=== PATIENT | female | born 1980 | race American Indian/Alaskan Native ===

== ENCOUNTER 2016-11-15 14:03 | Outpatient (CLI) | payer OTHER ==
[2016-11-15 14:31] LABS: Basophils % (Auto) 0.4 % (0.0-1.8); Eosinophils % (Auto) 1.4 % (0.0-4.3); Mean Corpuscular HGB Conc 30 % (30-34); Platelet Count 385 K/mm3 (140-440); Red Blood Count 4.64 M/mm3 (3.65-5.03); White Blood Count 9.3 K/mm3 (4.5-11.0)
[2016-11-15 14:34] LABS: Hematocrit 28.9 % (30.3-42.9); Hemoglobin 8.6 gm/dl (10.1-14.3); Mean Corpuscular Hemoglobin 19 pg (28-32); Mean Corpuscular Volume 62 fl (79-97); Red Cell Distribution Width 20.8 % (13.2-15.2)
[2016-11-15 14:56] LABS: Albumin 3.9 g/dL (3.9-5); Albumin/Globulin Ratio 1.2 %; Alkaline Phosphatase 54 units/L (35-129); Anion Gap 18 mmol/L; BUN/Creatinine Ratio 16.66; Bilirubin,Total 0.5 mg/dL (0.1-1.2); Blood Urea Nitrogen 10 mg/dL (7-17); Calcium 8.3 mg/dL (8.4-10.2); Carbon Dioxide 23 mmol/L (22-30); Chloride 100.1 mmol/L (98-107); Cholesterol 140 mg/dL (50-199); Glucose 93 mg/dL (65-100); HDL Cholesterol 32 mg/dL (40-59); LDL Cholesterol,Direct 94 mg/dL (50-130); Potassium 3.8 mmol/L (3.6-5.0); Sodium 137 mmol/L (137-145); Total Protein 7.1 g/dL (6.3-8.2); Triglycerides 73 mg/dL (2-149)
[2016-11-15 14:57] LABS: Alanine Aminotransferase < 5 units/L (7-56)
== END 2016-11-15 14:04 | disposition home or self-care (01) ==
LOC: LABHHL 14:03
PROVIDERS: ATTEND Specialist
DX: Z00.00 Encounter for general adult medical examination without abnormal findings (principal); D50.9 Iron deficiency anemia, unspecified; E61.8 Deficiency of other specified nutrient elements; K30 Functional dyspepsia
CPT/HCPCS: 36415; 80053; 80061; 84443; 85025

== ENCOUNTER 2019-01-27 14:00 | Emergency (ER) | payer BC, OTHER ==
--- NOTE | 2019-01-27 14:30 | Emergency Department Report ---
Chief Complaint: Neuro Symptoms/Deficit Stated Complaint: FACE NUMBNESS Time Seen by Provider: 01/27/19 14:28 - HPI History of Present Illness: FACE NUMB SINCE TUESDAY- [facility]MD TOLD HER DUE TO TOOTH BUT WHEN BP HIGH THEY SENT HER HERE NO FOCAL NEURO DEF 1430 WENT TO [facility] TODAY THEY SENT HER HERE TO RO [facility] NO FOCAL NEURO DEF NO CP NO SOB NO HEADACHE PMH HTN- WAS ON MEDS FOR 3 M - VISIT TUESDAY FOR FOLLOW UP OBESE HYPOTHYROID RX SYNTHROID ENALOPRIL- OFF METOPROL- OFF PSH THYROIDOMY BREAST REDUCTION HERE FOR 1. BP 2. NUMB FACE 3 DENTAL PAIN MSE COMPLETED MSE screening note: Focused history and physical exam performed. Due to findings the following was ordered: ED Disposition for MSE Condition: Stable
[2019-01-27] MEDS ORDERED: CATAPRES PO ONE ×2 (14:33)
[2019-01-27] MEDS ORDERED: CATAPRES ONE (14:36)
[2019-01-27 15:42] LABS: Hematocrit 32.9 % (30.3-42.9); Hemoglobin 10.5 gm/dl (10.1-14.3); Mean Corpuscular HGB Conc 32 % (30-34); Mean Corpuscular Volume 77 fl (79-97); Platelet Count 335 K/mm3 (140-440); Red Blood Count 4.29 M/mm3 (3.65-5.03); Red Cell Distribution Width 17.4 % (13.2-15.2)
[2019-01-27 15:52] LABS: BUN/Creatinine Ratio 11; Blood Urea Nitrogen 9 mg/dL (7-17); Calcium 8.3 mg/dL (8.4-10.2); Hemolysis Index 2
[2019-01-27 16:07] VITALS: BP 165/101
--- NOTE | 2019-01-27 16:09 | Emergency Department Report ---
ED Recheck HPI - General Chief Complaint: Neuro Symptoms/Deficit Stated Complaint: FACE NUMBNESS Time Seen by Provider: 01/27/19 14:28 Source: patient Mode of arrival: Ambulatory Limitations: No Limitations - History of Present Illness Initial Comments: PT SENT HERE FROM [facility] OFFICE FOR EVAL. PT HAS A DENTAL INFECTION BUT TOLD THE DMD THAT HER FACE WAS NUMB. THE DMD TOLD HER IT WAS IN THE DISTRIBUTION OF THE NERVE AFFECTED BY THE TOOTH BUT WANTED HER TO BE SEEN HERE WELL. NO ANTIBIOTICS GIVEN FOR THE DENTAL INFECTION. NO FOCAL NEURO DEF ON EXAM. -: Gradual, days(s) Initial Visit For: other Returns Today for: other Symptoms Since Prior Visit: no new symptoms Associated Symptoms: none - Related Data Home Medications Medication Instructions Recorded Confirmed Last Taken Ferrous Sulfate [Iron Supplement] 325 mg PO DAILY 03/21/14 03/28/14 03/27/14 Previous Rx's Medication Instructions Recorded Last Taken Type Amoxicillin 500 mg PO BID #20 capsule 01/27/19 Unknown Rx Enalapril Maleate [Vasotec] 2.5 mg PO DAILY #30 tablet 01/27/19 Unknown Rx Metoprolol Xl [Metoprolol 25 mg PO QDAY #30 tablet 01/27/19 Unknown Rx SUCCINATE ER TAB] Allergies Allergy/AdvReac Type Severity Reaction Status Date / Time No Known Allergies Allergy Verified 01/27/19 14:42 ED Review of Systems ROS: Stated complaint: FACE NUMBNESS Other details as noted in HPI Comment: All other systems reviewed and negative ED Past Medical Hx - Past Medical History Previous Medical History?: Yes Hx Hypertension: Yes (in process 01/2019) Hx Congestive Heart Failure: No Hx Diabetes: No Hx Asthma: No Hx COPD: No Additional medical history: hypothyroid - Surgical History Past Surgical History?: Yes Hx Breast Surgery: Yes (BILATERAL BREAST REDUCTION 1990) Additional Surgical History: thyroidectomy - Family History Family history: no significant - Social History Smoking Status: Never Smoker Substance Use Type: Alcohol - Medications Home Medications: Home Medications Medication Instructions Recorded Confirmed Last Taken Type Ferrous Sulfate [Iron Supplement] 325 mg PO DAILY 03/21/14 03/28/14 03/27/14 History Amoxicillin 500 mg PO BID #20 capsule 01/27/19 Unknown Rx Enalapril Maleate [Vasotec] 2.5 mg PO DAILY #30 tablet 01/27/19 Unknown Rx Metoprolol Xl [Metoprolol 25 mg PO QDAY #30 tablet 01/27/19 Unknown Rx SUCCINATE ER TAB] ED Physical Exam - General Limitations: No Limitations General appearance: alert, in no apparent distress - Head Head exam: Present: atraumatic, normocephalic - Expanded Head Exam Expanded 1 - AREA OF LOCAL NUMBNESS ABOVE DISEASED TOOTH. CO TOOTHACHE AND WAS AT [facility] TODAY FOR TREATMENT. NO OTHER SYMPTOMS. - Eye Eye exam: Present: normal appearance, PERRL, EOMI - ENT ENT exam: Present: mucous membranes moist - Expanded ENT Exam Expanded 1 - Other (DENTAL PAIN; NO ABSCESS. NO LUDWIGS. NO ABSCESS. ABC INTACT. TAKING PO. NO TRISMUS.) - Neck Neck exam: Present: normal inspection, full ROM - Respiratory Respiratory exam: Present: normal lung sounds bilaterally - Cardiovascular Cardiovascular Exam: Present: regular rate - GI/Abdominal GI/Abdominal exam: Present: soft, normal bowel sounds - Rectal Rectal exam: Present: deferred - Extremities Exam Extremities exam: Present: normal inspection - Back Exam Back exam: Present: normal inspection, full ROM - Neurological Exam Neurological exam: Present: alert, oriented X3, CN II-XII intact, normal gait - Expanded Neurological Exam Expanded Neurological exam: Absent: memory loss-remote event, memory loss-recent event, ataxia, receptive aphasia, expressive aphasia, total aphasia, tremor, protecting the airway Patient oriented to: Present: person, place, time Speech: Present: fluid speech Cranial nerves: EOM's Intact: Normal, Gag Reflex: Normal, Tongue Deviation: Normal, Nystagmus: Normal, Facial Sensation: Normal, Facial Palsy with Forehead Movement: Normal, Facial Palsy without Forehead Movement: Normal Cerebellar function: Finger to Nose: Normal, Heel to Saleh: Normal, Romberg: Normal Upper motor neuron: Pronator Drift: Normal Motor strength exam: RUE: 5, LUE: 5, RLE: 5, LLE: 5 Best Eye Response (Teresa): (4) open spontaneously Best Motor Response (Teresa): (6) obeys commands Best Verbal Response (Henrietta): (5) oriented Teresa Total: 15 - Psychiatric Psychiatric exam: Present: normal affect, normal mood - Skin Skin exam: Present: warm, dry, intact ED Course Vital Signs 01/27/19 01/27/19 01/27/19 14:28 14:35 16:06 Temperature 98.5 F Pulse Rate 93 H 72 Respiratory 18 18 Rate Blood Pressure 119/115 195/115 165/101 O2 Sat by Pulse 100 97 Oximetry - Reevaluation(s) Reevaluation #1: BP PER PROVIDER 150/90 ON DC. ED Recheck MDM - Core Measures Measure Exclusions: not indicated - Medical Decision Making NO HEADACHE NEURO INTACT PARASTHESIA OF LOCALIZED AREA OF R FACE CONSISTENT WITH DENTAL INFECTION PER DMD BP INC OFF BP MEDS NO CP NO SOB CN INTACT NO PRONATOR DRIFT CAN CLOSE EYES NO TRIGEMINAL PAIN NO PAIN OVER BAHAI PT WILL BE TREATED FOR THE DENTAL PAIN AND GIVEN RX FOR HER BP MEDS. EDUCATED ON DIET AND NEED TO TAKE MEDS. SHE WILL FOLLOW UP WITH PCP REFERRAL GIVEN. Critical care attestation.: If time is entered above; I have spent that time in minutes in the direct care of this critically ill patient, excluding procedure time. ED Disposition Clinical Impression: Dental caries, HTN (hypertension), Medication refill Disposition: TO HOME OR SELFCARE Is pt being admited?: No Does the pt Need Aspirin: No Condition: Stable Instructions: Hypertension (ED) Additional Instructions: DIET TOLERATED ACTIVITY TOLERATED FOLLOW UP PCP FOLLOW UP WITH DMD JOHANA MOTRIN OR TYLENOL FOR PAIN LOW SALT DIET MONITOR YOUR BLOOD PRESSURE MED ORDERED TODAY Prescriptions: Amoxicillin 500 mg PO BID #20 capsule Metoprolol Xl [Metoprolol SUCCINATE ER TAB] 25 mg PO QDAY #30 tablet Enalapril Maleate [Vasotec] 2.5 mg PO DAILY #30 tablet Referrals: WILIAM LINCOLN PA [Primary Care Provider] - 3-5 Days Time of Disposition: 16:09
== END 2019-01-27 16:30 | disposition home or self-care (01) ==
LOC: ED 14:00
DX: K02.9 Dental caries, unspecified (principal); I10 Essential (primary) hypertension; Z76.0 Encounter for issue of repeat prescription
CPT/HCPCS: 36415; 80048; 85027; 93005; 93010